=== PATIENT | female | born 1950 | race Caucasian/White ===

== ENCOUNTER 2021-11-02 14:07 | Emergency (ER) | payer OTHER ==
[~2021-11-02] VITALS: Ht 162.6 cm; Wt 88.5 kg
[2021-11-02 14:17] VITALS: BP_SYST 168
[2021-11-02 17:14] LABS: BASOPHILS % (AUTO) 0.8 % (0.0-2.0); EOSINOPHILS # (AUTO) 0.1 K/uL (0.0-0.4); EOSINOPHILS % (AUTO) 1.5 % (0.0-4.0); HEMATOCRIT 44.6 % (36-48); HEMOGLOBIN 14.7 g/dL (12.0-16.0); LYMPHOCYTES % (AUTO) 32.3 % (20.5-51.5); MEAN CORPUSCULAR HEMOGLOBIN 29 pg (27-31); MEAN CORPUSCULAR HGB CONC 33 % (32-36); MEAN CORPUSCULAR VOLUME 88 fL (79.0-98.0); MONOCYTES # (AUTO) 0.4 K/uL (0.0-1.0); MONOCYTES % (AUTO) 7.2 % (1.7-9.3); NEUTROPHILS # (AUTO) 3.6 K/uL (1.8-7.7); NEUTROPHILS % (AUTO) 58.2 % (40.0-70.0); PLATELET COUNT (AUTO) 232 K/uL (130-430); RED BLOOD CELL COUNT(AUTO) 5.06 MIL/uL (4.2-6.2); RED CELL DISTRIBUTION WIDTH 13.6 % (9.0-15.0); WHITE BLOOD COUNT (AUTO) 6.2 K/uL (4.8-10.8)
[2021-11-02 18:04] LABS: INR 0.9 (0.8-1.2); PROTHROMBIN TIME 9.9 SECS (9.5-12.5)
[2021-11-02 18:06] LABS: ANION GAP 8 (5-15); CHLORIDE 106 mmol/L (98-107); GLUCOSE 105 mg/dL (70-99); POTASSIUM 4.2 mmol/L (3.5-5.1); SODIUM SERUM 142 mmol/L (136-145); UREA NITROGEN, BLOOD 10 mg/dL (8-21)
[2021-11-02 18:07] LABS: ALANINE AMINOTRANSFERASE 23 U/L (12-78); ALBUMIN 3.9 g/dL (3.4-4.8); ASPARTATE AMINOTRANSFERASE 16 U/L (10-37); CREATININE 0.91 mg/dL (0.55-1.30); TOTAL BILIRUBIN 1.8 mg/dL (0.0-1.0); URIC ACID 5.4 mg/dL (2.4-7.0)
[2021-11-02 18:12] LABS: C-REACTIVE PROTEIN QUANT < 0.2 mg/dL (0-0.5)
[2021-11-02 18:16] LABS: ERYTHROCYTE SEDIMENTATION RATE 7 MM/HR (0-20)
== END 2021-11-02 18:00 | disposition left against medical advice (07) ==
LOC: SED 14:07
DX: G89.29 Other chronic pain (principal); M25.551 Pain in right hip; I10 Essential (primary) hypertension; E11.9 Type 2 diabetes mellitus without complications
CPT/HCPCS: 36415; 73502; 80053; 84550; 85025; 85610-TC; 85651-TC; 85730-TC; 86140; 99284

== ENCOUNTER 2023-02-15 18:55 | Emergency (ER) | payer OTHER ==
[~2023-02-15] VITALS: Ht 165.1 cm; Wt 86.6 kg
[2023-02-15 19:11] VITALS: BP_SYST 155
--- NOTE | 2023-02-15 19:14 | NUR ---
Patient triaged and placed in waiting room. VSS and patient appears in no acute distress at this time. Accompanied by FAMILY, awaiting available bed, and MD notified of need for MSE.
--- NOTE | 2023-02-15 20:40 | NUR ---
PT CALLED ON 2 SEPERATE OCASIONS FROM [facility], BUT HAS APPEARED TO OF ELOPED.
== END 2023-02-15 20:43 | disposition left against medical advice (07) ==
LOC: SED 18:55
DX: M54.2 Cervicalgia (principal); M54.50 Low back pain, unspecified; E11.9 Type 2 diabetes mellitus without complications; I10 Essential (primary) hypertension; Z88.1 Allergy status to other antibiotic agents; Z79.899 Other long term (current) drug therapy
CPT/HCPCS: 99281